=== PATIENT | female | born 1985 | race Caucasian/White ===

== ENCOUNTER → 2022-11-28 | Outpatient (CLI) | payer OTHER ==
[~2022-11-28] MED LIST: IOHEXOL-350 75 ML VIAL IV ONE
== END | disposition home or self-care (01) ==
LOC: RAH 09:54
PROVIDERS: ATTEND Internal Medicine Gastroenterology
DX: K76.89 Other specified diseases of liver (principal); R10.30 Lower abdominal pain, unspecified; D27.9 Benign neoplasm of unspecified ovary; Z90.721 Acquired absence of ovaries, unilateral; Z97.5 Presence of (intrauterine) contraceptive device; Z80.0 Family history of malignant neoplasm of digestive organs
CPT/HCPCS: 74178; Q9967